=== PATIENT | female | born 1950 | race Caucasian/White ===

== ENCOUNTER 2020-08-20 10:12 | Outpatient (CLI) | payer OTHER, SELFPAY ==
[2020-08-20 10:55] LABS: Basophils Absolute Auto 0.1 K/mm3 (0.0-0.1); Basophils Percent Auto 0.6 % (0.2-1.2); Eosinophils Absolute Auto 0.3 K/mm3 (0-0.3); Eosinophils Percent Auto 3.8 % (0-4.4); Hematocrit 42.2 % (37.0-47.0); Hemoglobin 13.8 g/dL (12.0-15.0); Immature Granulocyte Absolute 0.04 K/mm3 (0.00-0.031); Immature Granulocyte Percent A 0.5 % (0-0.5); Lymphocytes Absolute Auto 1.93 K/mm3 (0.9-3.2); Lymphocytes Percent Auto 22.8 % (18.3-44.2); Mean Corpuscular HGB Conc 32.7 g/dl (32-36); Mean Corpuscular Volume 94.8 fl (80-100); Mean Platelet Volume 10.9 fl (7.4-10.4); Monocytes Absolute Auto 0.5 K/mm3 (0.1-0.6); Monocytes Percent Auto 6.3 % (2.6-8.5); Neutrophils Absolute Auto 5.6 K/mm3 (1.3-6.7); Platelet Count Result 202 k/mm3 (150-375); Red Blood Count 4.45 M/mm3 (4.2-5.4); Red Cell Distribution Width 13.8 % (11.5-14.5); White Blood Count 8.5 K/mm3 (4.5-10.0)
[2020-08-20 11:04] LABS: Hemoglobin A1C 5.4 % (<5.7)
[2020-08-20 11:11] LABS: Alanine Aminotransferase 21 U/L (4-35); Albumin Level 4.1 g/dL (3.5-5.1); Alkaline Phosphatase 104 U/L (38-126); Anion Gap 4 mmol/L (8-16); Aspartate Amino Transferase 27 U/L (14-36); Bilirubin,Total 0.7 mg/dL (0.2-1.3); Blood Urea Nitrogen 17 mg/dL (7-17); Calcium 9.4 mg/dL (8.4-10.2); Carbon Dioxide 27 mmol/L (22-30); Chloride 107 mmol/L (98-107); Estimated Glomerular Filt Rate > 60; Glucose 102 mg/dL (65-105); Potassium 4.3 mmol/L (3.4-5.0); Sodium 138 mmol/L (137-145)
== END 2020-08-20 10:13 | disposition home or self-care (01) ==
PROVIDERS: PCP Family Medicine Adolescent Medicine; Visit Provider Internal Medicine Cardiovascular Disease
DX: E78.2 Mixed hyperlipidemia (principal); I25.10 Atherosclerotic heart disease of native coronary artery without angina pectoris; I10 Essential (primary) hypertension
CPT/HCPCS: 36415; 80053; 83036; 84443; 85025

== ENCOUNTER → 2020-10-30 00:31 | Outpatient (CLI) | payer OTHER, SELFPAY ==
[2020-10-30 18:30] LABS: SARS-CoV-2 RNA PCR Negative
== END ==
PROVIDERS: PCP Family Medicine Adolescent Medicine; Visit Provider Family Medicine Adolescent Medicine
DX: Z20.822 Contact with and (suspected) exposure to COVID-19 (principal)
CPT/HCPCS: C9803; U0003; U0005

== ENCOUNTER 2021-03-02 18:31 | Emergency (ER) | payer MEDICARE, SELFPAY ==
[2021-03-02] VITALS (16 sets, daily range): BP systolic 140–167; BP diastolic 74–92; PULSE 57–91; RESP 13–20; TEMP 36.4; O2SAT 96–100
--- NOTE | ~2021-03-02 | XR_ITS ---
EXAMINATION: XR chest 2V DATE: 03/02/2021 21:14 INDICATION: Nausea, history of hypertension and tobacco use TECHNIQUE: PA and lateral views of the chest are obtained. COMPARISON: 01/05/2019 FINDINGS: The lungs are free of acute opacities. There is no pleural effusion or pneumothorax. The ca rdiomediastinal silhouette is normal. There is mild thoracic spondylosis. IMPRESSION: 1. No acute cardiopulmonary abnormality. Reviewed, dictated and finalized at location A.
--- NOTE | 2021-03-02 18:37 | ECG_ITS ---
Measurements Intervals [place] Rate: 79 P: 50 NM: 136 QRS: -18 QRSD: 102 T: 54 QT: 373 QTc: 429 Interpretive Statements SINUS RHYTHM LOW QRS VOLTAGE IN PRECORDIAL LEADS INCOMPLETE RIGHT BUNDLE BRANCH BLOCK BORDERLINE ECG Electronically Signed On 03-03-2021 7:02:09 CDT by Hayes Cole D.O.
--- NOTE | 2021-03-02 20:39 | PC.NURSE ---
Pt here c/o not feeling well . reports high bp today and intermittent sharp right arm pain. currently has no arm pain. on court recording monitor. no s/s of distress.
[2021-03-02 21:28] LABS: Basophils Absolute Auto 0.1 K/mm3 (0.0-0.1); Basophils Percent Auto 0.7 % (0.2-1.2); Eosinophils Absolute Auto 0.3 K/mm3 (0-0.3); Hematocrit 41.3 % (37.0-47.0); Hemoglobin 13.3 g/dL (12.0-15.0); Immature Granulocyte Absolute 0.05 K/mm3 (0.00-0.031); Immature Granulocyte Percent A 0.5 % (0-0.5); Lymphocytes Percent Auto 20.6 % (18.3-44.2); Mean Corpuscular HGB Conc 32.2 g/dl (32-36); Mean Corpuscular Hemoglobin 30.4 pg (26-34); Mean Corpuscular Volume 94.3 fl (80-100); Monocytes Absolute Auto 0.7 K/mm3 (0.1-0.6); Monocytes Percent Auto 6.4 % (2.6-8.5); Neutrophils Absolute Auto 7.3 K/mm3 (1.3-6.7); Neutrophils Percent Auto 68.8 % (45.5-73.1); Platelet Count Result 208 k/mm3 (150-375); Red Blood Count 4.38 M/mm3 (4.2-5.4); Red Cell Distribution Width 14.3 % (11.5-14.5); White Blood Count 10.7 K/mm3 (4.5-10.0)
[2021-03-02] MEDS: ASPIRIN 81 MG CHEWABLE TABLET 324 MG PO (21:31)
[2021-03-02 21:38] LABS: Anion Gap 7 mmol/L (8-16); Blood Urea Nitrogen 14 mg/dL (7-17); Calcium 9.5 mg/dL (8.4-10.2); Carbon Dioxide 24 mmol/L (22-30); Chloride 109 mmol/L (98-107); Estimated CRCL calculation 64 ml/min; Estimated Glomerular Filt Rate > 60; Glucose 107 mg/dL (65-110); INR 0.9; Potassium 4.4 mmol/L (3.4-5.0); Prothrombin Time 11.9 Seconds (11.1-14.7); Sodium 140 mmol/L (137-145)
[2021-03-02 21:39] LABS: Partial Thromboplastin Time 24.9 SECONDS (22.3-36.8)
[2021-03-02 21:50] LABS: Troponin I < 0.012 ng/mL (0.000-0.034)
--- NOTE | 2021-03-02 23:43 | ED.GENADULT ---
HPI - General Adult General Chief complaint: Recheck/Abnormal Lab/Rx <Kenn Gardner MD - Last Filed: 03/02/21 23:50> Stated complaint: Nausea, high bp <Kenn Gardner MD - Last Filed: 03/02/21 23:50> Time Seen by Provider: 03/02/21 20:15 <Kenn Gardner MD - Last Filed: 03/02/21 23:50> History of Present Illness HPI narrative: Patient is a 70-year-old female who presents ER with concerns of hypertension and atypical chest pain. Patient reports around 4:30 PM she noticed that she was hot and flushed and having some nausea. She felt burning in her chest and had some discomfort in the right arm. Symptoms wax and wane in intensity for a bit. They have since resolved. Patient reports her blood pressure was in the 200 systolic at the time. Patient reports history of CT in the past. Concerned this may have reflected something similar so she came in for further evaluation. No exertional chest pain or discomfort. Patient was at rest when symptoms began. <Kenn Gardner MD - Last Filed: 03/02/21 23:50> Related Data Allergies/adverse reactions: Allergies Allergy/AdvReac Type Severity Reaction Status Date / Time No Known Allergies Allergy Verified 03/02/21 20:24 <Kenn Gardner MD - Last Filed: 03/02/21 23:50> Review of Systems Review of Systems: All systems reviewed & are unremarkable except as noted in HPI and below <Kenn Gardner MD - Last Filed: 03/02/21 23:50> Constitutional: Constitutional: Denies chills, Denies fever(s) and Denies weakness <Kenn Gardner MD - Last Filed: 03/02/21 23:50> Cardiovascular: Cardiovascular: Reports chest pain, Denies rapid heart rate and Reports radiating jaw, neck or arm pain <Kenn Gardner MD - Last Filed: 03/02/21 23:50> Respiratory: Respiratory: Denies cough, Denies dyspnea and Denies wheezing <Kenn Gardner MD - Last Filed: 03/02/21 23:50> Gastrointestinal: Gastrointestinal: Denies abdominal pain, Reports heartburn, Reports nausea and Denies vomiting <Kenn Gardner MD - Last Filed: 03/02/21 23:50> [facility] Past Medical History Medical History: Medical History (Updated 03/03/21 @ 02:17 by Ray Norris MD) Coronary artery disease History of left heart catheterization Hypercholesterolemia Hypertension <Kenn Gardner MD - Last Filed: 03/02/21 23:50> Surgical History Surgical History: Surgical History (Updated 03/02/21 @ 23:46 by Kenn Gardner MD) History of percutaneous coronary intervention 2 stents to the RCA. <Kenn Gardner MD - Last Filed: 03/02/21 23:50> Family History Family History: Family History (System 12/06/20 @ 16:28 by Agapito Guzmán) Mother Family history of malignant neoplasm Family history of coronary artery disease Father Family history of malignant neoplasm of brain Other Cerebrovascular accident Diabetes mellitus <Kenn Gardner MD - Last Filed: 03/02/21 23:50> Social History Social History: Social History (Updated 03/02/21 @ 23:46 by Kenn Gardner MD) Smoking status: Former smoker Alcohol intake: current Gender identity (if verbalized by the patient): Female <Kenn Gardner MD - Last Filed: 03/02/21 23:50> Exam Narrative: GENERAL: Well-appearing, well-nourished, and in no acute distress. HEAD: Normocephalic, atraumatic. CHEST: Clear to auscultation. No respiratory distress. HEART: Regular rate and rhythm. Normal peripheral pulses. ABDOMEN: Soft, nontender, nondistended. EXTREMITIES: Normal range of motion. No edema. SKIN: Warm, dry, no rash. NEURO: Alert and oriented x3. PSYCH: Normal mood and affect. <Kenn Gardner MD - Last Filed: 03/02/21 23:50> Course Course Emergency Course: Patient taken over from Dr. Rouse at shift change. Awaiting 3 hour troponin. Troponin negative. Symptoms have resolved. <Ray Norris MD - Last Filed: 03/03/21 02:18> Vital Signs Vital signs
[2021-03-03] VITALS (21 sets, daily range): BP systolic 108–148; BP diastolic 61–89; PULSE 56–76; RESP 12–25; O2SAT 95–98
[2021-03-03 00:39] LABS: Troponin I < 0.012 ng/mL (0.000-0.034)
== END 2021-03-03 02:38 | disposition home or self-care (01) ==
PROVIDERS: Emergency Provider Emergency Medicine; PCP Family Medicine Adolescent Medicine
DX: R07.89 Other chest pain (principal); I25.2 Old myocardial infarction; I25.10 Atherosclerotic heart disease of native coronary artery without angina pectoris; E78.00 Pure hypercholesterolemia, unspecified; I10 Essential (primary) hypertension; Z95.5 Presence of coronary angioplasty implant and graft; Z87.891 Personal history of nicotine dependence; I45.10 Unspecified right bundle-branch block
CPT/HCPCS: 36415; 71046; 80048; 84484; 85025; 85610; 85730; 93005; 99284; A9270

== ENCOUNTER 2021-12-10 13:42 | Emergency (ER) | payer MEDICARE, SELFPAY ==
--- NOTE | ~2021-12-10 | CT_ITS ---
EXAMINATION: CT abdomen pelvis w con DATE: 12/10/2021 15:50 INDICATION: lower abd pain no BM for 6 days TECHNIQUE: Computed tomography (CT) of the abdomen and pelvis was performed with 100 mL Omnipaque-300 intravenous contrast. Automated exposure control and iterative reconstruction technique were employe d. The dose-length product was 870.92 mGy-cm. COMPARISON: None FINDINGS: Lower thorax: Severe coronary artery calcification Liver: Normal. Biliary/Gallbladder: Gallbladder is normal. No bile duct dilation. Spleen: Normal. Pancreas: No mass or duct dilation. Adrenals:No mass. Kidneys: Left upper pole scarring and simple cyst. Mild right pelviectasis and ureterectasis without obstructing stone, likely chronic or possibly related to recently passed stone. GI tract: No small or large bowel dilation. Normal appendix. Mesentery/Peritoneum: No ascites, mass, or free air. Retroperitoneum: No mass. Pelvis: 2 mm stone in the distal left ureter. Organs are within normal limits. Soft Tissues: Soft tissues and body wall unremarkable. Bones: No acute osseous finding. IMPRESSION: 2 mm distal left ureteral stone, without significant obstructive uropathy. Reviewed, dictated and finalized at location K.
[2021-12-10 13:50] VITALS: BP 160/99; PULSE 79; RESP 16; TEMP 36.6; O2SAT 99
--- NOTE | 2021-12-10 14:44 | ED.ABDPAIN ---
HPI - Abdominal Pain General Chief Complaint: Abdominal Pain Stated Complaint: constipation Time Seen by Provider: 12/10/21 14:35 Source: patient History of Present Illness HPI narrative: Patient presents with abdominal pain. Reports he has not had a bowel movement for approximately 6 days. Reports she has lower abdominal pain that is cramping constant, no clear aggravating alleviating factors, no radiation. She has had some mild nausea. Patient normally when she gets constipated she will take some [id number] medications and alleviate her symptoms. She has attempted multiple xjin-[id number] medications docusate suppositories MiraLAX senna without relief of her symptoms so she came to ER for further evaluation. Denies prior history of bowel obstructions. She denies any urinary symptoms she denies any fevers or vomiting Related Data Allergies Allergy/AdvReac Type Severity Reaction Status Date / Time No Known Allergies Allergy Verified 12/10/21 14:51 Review of Systems Review of Systems: CONSTITUTIONAL: Denies fever, chills, or sweats. EYES: Denies visual changes, redness, or discharge. ENT: Denies rhinorrhea, congestion, sore throat, or otalgia. CARDIOVASCULAR: Denies chest pain, palpitations, or edema. RESPIRATORY: Denies cough or dyspnea. GASTROINTESTINAL: Abdominal pain with nausea GENITOURINARY: Denies dysuria or hematuria. SKIN: Denies rash or itching. MUSCULOSKELETAL: Denies back pain, joint pain, or myalgia. NEUROLOGIC: Denies headache, numbness, dizziness, or weakness. PSYCHIATRIC: Denies anxiety or depression. All systems reviewed & are unremarkable except as noted in HPI and below PMFSH Past Medical History Medical History Coronary artery disease History of left heart catheterization Hypercholesterolemia Hypertension Surgical History Surgical History History of percutaneous coronary intervention 2 stents to the RCA. Family History Family History Mother Family history of malignant neoplasm Family history of coronary artery disease Father Family history of malignant neoplasm of brain Other Cerebrovascular accident Diabetes mellitus Social History Social History Smoking status: Former smoker Alcohol intake: current Gender identity (if verbalized by the patient): Female Exam Narrative: GENERAL: Well-appearing, well-nourished, and in no acute distress. HEAD: Normocephalic, atraumatic. EYES: PERRLA and EOMI. ENT: Nares clear, no rhinorrhea or epistaxis. Mucous membranes moist. NECK: Supple. No masses. No JVD ABDOMEN: Mild diffuse tenderness slightly increased with palpation of lower abdomen no rebound or guarding soft, nondistended, normal active bowel sounds. EXTREMITIES: Normal range of motion. No edema. SKIN: Warm, dry, no rash. NEURO: No focal deficits. Alert and oriented x3. PSYCH: Normal mood and affect. Course Reevaluation(s) Reevaluation #1: Patient resting comfortably results and plan reviewed with patient. Patient is comfortable outpatient plan. Date: 12/10/21 Time: 16:26 Vital Signs Vital signs: Vital Signs Temperature 36.6 C 12/10/21 13:50 Pulse Rate 79 12/10/21 13:50 Respiratory Rate 16 12/10/21 13:50 Blood Pressure 160/99 H 12/10/21 13:50 Pulse Oximetry 99 12/10/21 13:50 Temperature 36.6 C 12/10/21 13:50 Pulse Rate 80 12/10/21 16:48 Respiratory Rate 16 12/10/21 16:48 Blood Pressure 175/100 H 12/10/21 16:48 Pulse Oximetry 96 12/10/21 16:48 MDM - Abdominal Pain MDM Narrative Medical decision making narrative: H&P as above, vss, pt looks clinically well, exam with lower abdominal pain, labs clinically unremarkable, img with 2 mm ureteral stone, additional labs/img considered, symptomatic relief available as ne
[2021-12-10] MEDS: SODIUM CHLORIDE 0.9% IV 1,000 ML 999 ML IV CONT (14:50)
[2021-12-10 14:53] LABS: Basophils Absolute Auto 0.1 K/mm3 (0.0-0.1); Basophils Percent Auto 0.5 % (0.2-1.2); Eosinophils Absolute Auto 0.2 K/mm3 (0-0.3); Eosinophils Percent Auto 1.7 % (0-4.4); Hematocrit 43.4 % (37.0-47.0); Hemoglobin 14.2 g/dL (12.0-15.0); Immature Granulocyte Absolute 0.04 K/mm3 (0.00-0.031); Immature Granulocyte Percent A 0.4 % (0-0.5); Lymphocytes Absolute Auto 1.78 K/mm3 (0.9-3.2); Lymphocytes Percent Auto 18.5 % (18.3-44.2); Mean Corpuscular HGB Conc 32.7 g/dl (32-36); Mean Corpuscular Hemoglobin 31.6 pg (26-34); Mean Corpuscular Volume 96.4 fl (80-100); Mean Platelet Volume 10.9 fl (7.4-10.4); Monocytes Absolute Auto 0.6 K/mm3 (0.1-0.6); Monocytes Percent Auto 6.7 % (2.6-8.5); Neutrophils Percent Auto 72.2 % (45.5-73.1); Platelet Count Result 214 k/mm3 (150-375); Red Cell Distribution Width 14.2 % (11.5-14.5); White Blood Count 9.6 K/mm3 (4.5-10.0)
[2021-12-10 15:02] LABS: Appearance Urine Clear (Clear); Bilirubin Urine Negative (Negative); Blood Urine Negative (Negative); Color Urine Yellow (Yellow); Glucose Urine UA Negative (Negative); Ketones Urine Negative (Negative); Leukocyte Esterase Ur Negative LEU/UL (Negative); Nitrate Urine Negative (Negative); Protein Urine Negative (Negative); Specific Grav Ur <= 1.005 (1.001-1.035); Urobilinogen Urine 0.2 mg/dL (<2.0)
[2021-12-10 15:03] LABS: Alanine Aminotransferase 19 U/L (6-35); Albumin Level 4.5 g/dL (3.5-5.1); Alkaline Phosphatase 126 U/L (38-126); Anion Gap 5 mmol/L (8-16); Aspartate Amino Transferase 29 U/L (14-36); Bilirubin,Total 0.8 mg/dL (0.2-1.3); Blood Urea Nitrogen 12 mg/dL (7-17); Calcium 9.1 mg/dL (8.4-10.2); Carbon Dioxide 28 mmol/L (22-30); Chloride 104 mmol/L (98-107); Estimated CRCL calculation 71 ml/min; Estimated Glomerular Filt Rate > 60; Glucose 109 mg/dL (65-110); Lipase 86 U/L (23-300); Potassium 3.9 mmol/L (3.4-5.0); Sodium 137 mmol/L (137-145)
[2021-12-10 15:04] LABS: Bacteria Urine Trace /hpf; WBC Urine 0-3 /hpf
[2021-12-10] MEDS: GLYCERIN ADULT 1 SUPP.RECT RECTAL (15:07)
--- NOTE | 2021-12-10 15:12 | PC.NURSE ---
Pt declined going to XRAY at this time due to supp. was admin and pt would like to use bedside commode prior to going to XRAY.
[2021-12-10 15:21] LABS: Add Urine Microscopic? YES
[2021-12-10 16:48] VITALS: BP 175/100; PULSE 80; RESP 16; O2SAT 96
== END 2021-12-10 16:47 | disposition home or self-care (01) ==
PROVIDERS: Emergency Provider Emergency Medicine; PCP Family Medicine Adolescent Medicine
DX: N20.1 Calculus of ureter (principal); I25.10 Atherosclerotic heart disease of native coronary artery without angina pectoris; E78.00 Pure hypercholesterolemia, unspecified; I10 Essential (primary) hypertension; Z95.5 Presence of coronary angioplasty implant and graft; Z87.891 Personal history of nicotine dependence
CPT/HCPCS: 36415; 74177; 80053; 81001; 83690; 85025; 96360; 99284; A9270; J7030; Q9967

== ENCOUNTER → 2022-01-02 10:04 | Outpatient (CLI) | payer MEDICARE, SELFPAY ==
--- NOTE | ~2022-01-02 | US_ITS ---
EXAMINATION: US retroperitoneal comp DATE: 01/02/2022 10:52 INDICATION: Left ureteral stone TECHNIQUE: Multiple ultrasound grayscale images of the kidneys were obtained. COMPARISON: None. FINDINGS: The right kidney measures 10.8 x 5.1 x 5.6 cm. The left kidney measures 10.3 x 4.9 x 5.6 cm. The kidn eys demonstrate normal echogenicity. There is no hydronephrosis in either kidney. No stones identifi ed. The bladder is normal. IMPRESSION: 1. Normal kidneys without hydronephrosis. Reviewed, dictated and finalized at location B.
== END ==
PROVIDERS: PCP Urology; Visit Provider Urology
DX: N20.1 Calculus of ureter (principal)
CPT/HCPCS: 76770